=== PATIENT | female | born 1945 | race Caucasian/White ===

== ENCOUNTER 2018-03-31 10:55 | Outpatient (CLI) | payer OTHER ==
[~2018-03-31 10:55] MED LIST: GABA-531 PO; Hydrocodone Bit/Acetaminophen PO; LOP600 PO; METF-510 PO; METO-308 PO; OMEP20CA10 PO; PIOG15TA21 PO
== END 2018-03-31 20:16 | disposition home or self-care (01) ==
LOC: SMA 10:55
PROVIDERS: ATTEND Family Medicine
DX: Z12.31 Encounter for screening mammogram for malignant neoplasm of breast (principal)
CPT/HCPCS: 77067

== ENCOUNTER 2019-12-04 18:45 | Emergency (ER) | payer OTHER ==
[~2019-12-04] VITALS: Ht 154.9 cm; Wt 68.0 kg
[~2019-12-04 18:45] MED LIST changes: -METO-308 PO; +METO-544 PO; -OMEP20CA10 PO; +OMEP20CA11 PO; -PIOG15TA21 PO; +PIOG15TA67 PO
[2019-12-04 18:56] VITALS: BP_SYST 135
--- NOTE | 2019-12-04 21:15 | NUR ---
Patient to ER bed 6 to gown for evaluation. Side rails up. Report given to SCOOBY CHOI.
--- NOTE | 2019-12-04 21:20 | NUR ---
PLACED IN BED 6. HERE FOR SUPRAPUBIC CATHETER MALFUNCTION (CLOGGED). COMPLAINS OGF SUPRAPUBIC PAIN AND PRESSURE (08/06).
--- NOTE | 2019-12-04 22:17 | NUR ---
URINE DIPSTICK DONE. REPORT NOTED BY DUC.
--- NOTE | 2019-12-04 22:30 | NUR ---
LARA- CAME BY BEDSIDE TO EVALUATE PT. SUPRAPUBIC CATHETER FLUSHED WITH 15 ML OF STERILE NS. PT.UNABLE TO TOLERATE ANY MORE NS.
--- NOTE | 2019-12-04 22:50 | NUR ---
SUPRAPUBIC CATHETER REPLACED WITH 16 INDONESIAN NEW CATHETER AND CONNECTED TO LEG BAG. DRAINAGE IS CLOUDY YELLOW ABOUT 110 ML IN AMOUNT.PT. VERBALIZED INTANTANEOUS RELIEF OF SUPRAPUBIC PAIN AND PRESSURE.
[2019-12-04 23:20] VITALS: BP_SYST 130
--- NOTE | 2019-12-04 23:20 | NUR ---
Patient given written and verbal discharge instructions and verbalizes understanding. ER MD discussed with patient the results and treatment provided. Patient in stable condition. ID arm band removed. No IV No RX given. Patient educated on pain management and to follow up with PMD. Pain Scale 0/10. Opportunity for questions provided and answered.
== END 2019-12-04 23:20 | disposition home or self-care (01) ==
LOC: SED 18:45
DX: T83.098A Other mechanical complication of other urinary catheter, initial encounter (principal); N39.0 Urinary tract infection, site not specified; Y92.89 Other specified places as the place of occurrence of the external cause; E11.9 Type 2 diabetes mellitus without complications; K21.9 Gastro-esophageal reflux disease without esophagitis; E07.9 Disorder of thyroid, unspecified; Z90.49 Acquired absence of other specified parts of digestive tract; Z90.710 Acquired absence of both cervix and uterus; Z79.899 Other long term (current) drug therapy; Z88.0 Allergy status to penicillin; Z88.1 Allergy status to other antibiotic agents
CPT/HCPCS: 81002; 99284